=== PATIENT | female | born 1990 | race Caucasian/White ===

== ENCOUNTER 2016-08-17 02:57 | Emergency (ER) | payer BC, MEDICAID ==
[~2016-08-17] VITALS: Ht 167.6 cm; Wt 59.0 kg
[~2016-08-17 02:57] MED LIST: ALBU17AE23 IH; CEFD300C PO; DCS100C PO; FLUC200T PO; HYDR15SO6 PO; IBP800T PO; PEDI100T PO; PEDI1TAB36 PO
--- NOTE | 2016-08-17 03:08 | ED GI ---
General Chief Complaint: Abdominal/GI Problems Stated Complaint: VOMITING,DIARRHEA,15 WKS PREG Source of Information: Patient, RN Notes Reviewed Exam Limitations: No Limitations History of Present Illness Time Seen By Provider: 03:08 Initial Comments As above. No known fever. Denies any symptoms @ this time. Timing/Duration: 24 Hours Severity/Quality: Moderate, Aching Location: Generalized Abdomen Radiation: No Radiation Activities at Onset: None Modifying Factors: Worsens With Vomiting Associated Symptoms: Nausea/Vomiting Allergies and Home Medications Allergies Coded Allergies: fluconazole (Unverified Adverse Reaction, Unknown, 10/19/13) Home Medications Docusate Sodium 100 Mg Capsule #60 1 CAP PO DAILY PRN PRN CONSTIPATION Prescribed by: BRYCE MCKENZIE on 10/20/1324 Famotidine 20 Mg Tablet #10 20 MG PO BID Prescribed by: VANCE RIVERA on 08/17/16446 Hydrocodone Bit/Acetaminophen 15 Ml Solution #60 10-20 ML PO Q4H PRN PRN PAIN Prescribed by: BRYCE MCKENZIE on 10/20/13 0724 Ibuprofen 800 Mg Tablet #60 1 TAB PO Q6H PRN PRN PAIN Prescribed by: BRYCE MCKENZIE on 10/20/13 0724 Metoclopramide HCl 10 Mg Tablet #20 10 MG PO Q6H PRN PRN NAUSEA/VOMITING Prescribed by: VANCE RIVERA on 08/17/16446 Pediatric Multivit Comb No.42 1 Each Tab.chew 2 EACH PO DAILY (Reported) Review of Systems Constitutional: see HPINo fever Gastrointestinal: See HPI Abdominal Pain Diarrhea Nausea Vomiting Genitourinary: See HPI (15 weeks ) All Other Systems Reviewed Negative Unless Noted: Yes Past Kcipqes-Ycrbqk-Itdvul Hx Patient Social History Recent Foreign Travel: No Contact w/Someone Who Travel: No Immunizations Up To Date Tetanus Booster (TDap): More than 5yrs Surgeries HX Surgeries: No Respiratory Hx Respiratory Disorders: Yes Respiratory Disorders: Asthma Cardiovascular Hx Cardiac Disorders: No Neurological Hx Neurological Disorders: No Reproductive System Hx Reproductive Disorders: No Sexually Transmitted Disease: No HIV/AIDS: No Female Reproductive Disorders: Denies Genitourinary Hx Genitourinary Disorders: No Gastrointestinal Hx Gastrointestinal Disorders: No Musculoskeletal Hx Musculoskeletal Disorders: No Endocrine Hx Endocrine Disorders: No HEENT HX ENT Disorders: No Cancer Hx Cancer: No Psychosocial Hx Psychiatric Problems: No Integumentary HX Skin/Integumentary Disorder: No Blood Transfusions Hx Blood Disorders: No Adverse Reaction to a Blood Tr: No Family Medical History Family Medial History: Family history: Diabetes mellitus [place] Family history: Hypertension 03 MOTHER Heart disease [place] Myocardial infarction [place] (Maternal Grandpa) Physical Exam Vital Signs VS - Last 72 Hours, by Label 08/17/16 08/17/16 03:07 04:51 Temp 98.9 98.9 Pulse 108 82 Resp 18 18 B/P 118/77 Pulse Ox 97 97 O2 Delivery Room Air Capillary Refill : General Appearance: WD/WN mild distress HEENT: other (oral pharynx a little on the dry side) Neck: supple Respiratory: no respiratory distress Cardiovascular: tachycardia Gastrointestinal: softNo guarding, No rebound, tenderness (generalized) Rectal: deferred Back: no CVA tenderness Neurologic/Psychiatric: no motor/sensory deficits alert oriented x 3 Skin: warm/dry Progress/Results/Core Measures Results/Orders Lab Results Laboratory Tests Test 08/17/16 03:09 08/17/16 04:11 Range/Units Alanine Aminotransferase (ALT/SGPT) 12 0-55 U/L Albumin 4.2 3.2-4.5 G/DL Alkaline Phosphatase 51 40-136 U/L Anion Gap 11 5-14 MMOL/L Aspartate Amino Transf (AST/SGOT) 17 5-34 U/L BUN/Creatinine Ratio 13 Band Neutrophils 3 % Basophils # (Auto) 0.0 0.0-0.1 10^3/uL Basophils (%) (Auto) 0 0-10 % Blood Urea Nitrogen 9 7-18 MG/DL Calcium Level 8.9 8.5-10.1 MG/DL Carbon Dioxide Level 20 L 21-32 MMOL/L Chloride Level 104 98-107 MMOL/L Creatinine 0.69 0.60-1.30 MG/DL Eosinophils # (Auto) 0.1 0.0-0.3 10^3/uL Eosinophils % (Manual) 1 % Eosinophils (%) (Auto) 1 0-10 % Estimat Glomerular Filtration Rate > 60 Glucose Level 103 70-105 MG/DL Hematocrit 34 L 35-52 % Hemoglobin 10.6 L 11.5-16.0 G/DL Lymphocytes # (Auto) 0.6 L 1.0-4.0 X 10^3 Lymphocytes % (Manual) 5 % Lymphocytes (%) (Auto) 4 L 12-44 % Mean Corpuscular Hemoglobin 20 L 25-34 PG Mean Corpuscular Hemoglobin Concent 32 32-36 G/DL Mean Corpuscular Volume 65 L 80-99 FL Mean Platelet Volume 10.4 7.4-10.4 FL Microcytosis SLIGHT Monocytes # (Auto) 0.6 0.0-1.0 X 10^3 Monocytes % (Manual) 1 % Monocytes (%) (Auto) 5 0-12 % Neutrophils # (Auto) 11.8 H 1.8-7.8 X 10^3 Neutrophils % (Manual) 90 % Neutrophils (%) (Auto) 91 H 42-75 % Platelet Count 279 130-400 10^3/uL Potassium Level 3.5 L 3.6-5.0 MMOL/L Red Blood Count 5.20 4.35-5.85 10^6/uL Red Cell Distribution Width 18.5 H 10.0-14.5 % Sodium Level 135 135-145 MMOL/L Total Bilirubin 0.8 0.1-1.0 MG/DL Total Protein 7.2 6.4-8.2 G/DL White Blood Count 13.0 H 4.3-11.0 10^3/uL Urine Bacteria TRACE /HPF Urine Bilirubin NEGATIVE NEGATIVE Urine Casts NONE /LPF Urine Clarity CLEAR Urine Color YELLOW Urine Crystals NONE /LPF Urine Culture Indicated NO Urine Glucose (UA) NEGATIVE NEGATIVE Urine Ketones 4+ H NEGATIVE Urine Leukocyte Esterase 1+ H NEGATIVE Urine Mucus LARGE H /LPF Urine Nitrite NEGATIVE NEGATIVE Urine Protein 1+ H NEGATIVE Urine RBC NONE /HPF Urine RBC (Auto) NEGATIVE NEGATIVE Urine Specific [place] 1.030 H 1.016-1.022 Urine Squamous Epithelial Cells 10-25 H /HPF Urine Urobilinogen NORMAL NORMAL MG/DL Urine WBC RARE /HPF Urine pH 5 5-9 My Orders Orders-VANCE RIVERA DO Saline Lock/Iv-Start (08/17/16 03:10) Cbc With Automated Diff (08/17/16 03:10) Comprehensive Metabolic Panel (08/17/16 03:10) Ua Culture If Indicated (08/17/16 03:10) Saline Lock/Iv-Start (08/17/16 03:10) Ns Iv 1000 Ml (Sodium Chloride 0.9%) (08/17/16 03:10) Famotidine Injection (Pepcid Injection) (08/17/16 03:15) Metoclopramide Injection (Reglan Injecti (08/17/16 03:15) Metoclopramide Injection (Reglan Injecti (08/17/16 03:13) Ns Iv 1000 Ml (Sodium Chloride 0.9%) (08/17/16 03:13) Famotidine Injection (Pepcid Injection) (08/17/16 03:13) Manual Differential (08/17/16 03:09) Medications Given in ED Vital Signs/I&O Vital Sign - Last 12Hours 08/17/16 08/17/16 03:07 04:51 Temp 98.9 98.9 Pulse 108 82 Resp 18 18 B/P 118/77 Pulse Ox 97 97 O2 Delivery Room Air Progress Note : Progress Note Wanted to give the patient one more bag of IVF's but she declined. [place] much better and said she would go home and push oral fluids. Departure Impression Impression: Primary Impression: Nausea vomiting and diarrhea Additional Impressions: Dehydration during Disposition: 01 HOME, SELF-CARE Condition: Improved Departure-Patient Inst. Decision time for Depature: 04:45 Referrals: [facility] (PCP) Primary Care Physician MARCIO SEQUEIRA (Family) Primary Care Physician Patient Instructions: Nausea and Vomiting, Adult (DC), Diarrhea in Adolescents and Adults Scripts Metoclopramide HCl (Reglan)10 Mg [id number] Mg PO Q6H PRN NAUSEA/VOMITING #20 TAB Ref 0 Prov:VANCE RIVERA DO 08/17/16 Famotidine (Pepcid)20 Mg [id number] Mg PO BID #10 TAB Ref 0 Prov:VANCE RIVERA DO 08/17/16 VANCE RIVERA DO Aug 17, 2016 03:08
[2016-08-17] MEDS ORDERED: NS IV 1000 ML 1,000 ML IV ONE (03:10)
[2016-08-17] MEDS ORDERED: FAMOTIDINE 20MG/2ML IV (PEPCID) ONE (03:13)
[2016-08-17] MEDS ORDERED: NS IV 1000 ML 1,000 ML ONE (03:13)
[2016-08-17] MEDS ORDERED: METOCLOPRAMIDE INJ 10 MG/2 ML (REGLAN) ONE (03:13)
[2016-08-17] MEDS ORDERED: FAMOTIDINE 20MG/2ML IV (PEPCID) IVP ONE (03:15)
[2016-08-17] MEDS ORDERED: METOCLOPRAMIDE INJ 10 MG/2 ML (REGLAN) IVP ONE (03:15)
[2016-08-17 03:21] LABS: BASOPHILS % (AUTO) 0 % (0-10); EOSINOPHILS # (AUTO) 0.1 10^3/uL (0.0-0.3); EOSINOPHILS % (AUTO) 1 % (0-10); LYMPHOCYTES # (AUTO) 0.6 X 10^3 (1.0-4.0); LYMPHOCYTES % (AUTO) 4 % (12-44); MEAN CORPUSCULAR HEMOGLOBIN 20 PG (25-34); MEAN CORPUSCULAR HGB CONC 32 G/DL (32-36); MEAN CORPUSCULAR VOLUME 65 FL (80-99); MEAN PLATELET VOLUME 10.4 FL (7.4-10.4); MONOCYTES # (AUTO) 0.6 X 10^3 (0.0-1.0); MONOCYTES % (AUTO) 5 % (0-12); NEUTROPHILS # (AUTO) 11.8 X 10^3 (1.8-7.8); NEUTROPHILS % (AUTO) 91 % (42-75); PLATELET COUNT 279 10^3/uL (130-400); RED CELL DISTRIBUTION WIDTH 18.5 % (10.0-14.5)
[2016-08-17 03:40] LABS: ALANINE AMINOTRANSFERASE 12 U/L (0-55); ALBUMIN 4.2 G/DL (3.2-4.5); ANION GAP 11 MMOL/L (5-14); ASPARTATE AMINO TRANSFERASE 17 U/L (5-34); BILIRUBIN,TOTAL 0.8 MG/DL (0.1-1.0); BLOOD UREA NITROGEN 9 MG/DL (7-18); BUN/CREATININE RATIO 13; CALCIUM 8.9 MG/DL (8.5-10.1); CARBON DIOXIDE 20 MMOL/L (21-32); CHLORIDE 104 MMOL/L (98-107); CREATININE SERUM 0.69 MG/DL (0.60-1.30); GFR ESTIMATED > 60; GLUCOSE 103 MG/DL (70-105); POTASSIUM 3.5 MMOL/L (3.6-5.0); SODIUM 135 MMOL/L (135-145); TOTAL PROTEIN 7.2 G/DL (6.4-8.2)
[2016-08-17 03:42] LABS: BAND NEUTROPHILS 3 %; EOSINOPHILS % (MANUAL) 1 %; LYMPHOCYTES % (MANUAL) 5 %; MICROCYTOSIS SLIGHT; NEUTROPHILS % (MANUAL) 90 %
[2016-08-17 04:26] LABS: BILIRUBIN,URINE NEGATIVE (NEGATIVE); KETONES,URINE 4+ (NEGATIVE); LEUKOCYTE ESTERASE ,URINE 1+ (NEGATIVE); NITRITE,URINE NEGATIVE (NEGATIVE); PH,URINE 5 (5-9); PROTEIN,URINE 1+ (NEGATIVE); UROBILINOGEN,URINE NORMAL (NORMAL)
[2016-08-17 04:36] LABS: WBC,URINE RARE /HPF
[2016-08-17] MEDS ORDERED: FAMO-119 PO (04:47)
[2016-08-17] MEDS ORDERED: METO-310 PO (04:47)
[2016-08-17 04:51] VITALS: BP 103/65
== END 2016-08-17 04:51 | disposition home or self-care (01) ==
LOC: EDUNIT# 02:57 → ER 03:01
DX: O21.8 Other vomiting complicating pregnancy (principal); O99.282 Endocrine, nutritional and metabolic diseases complicating pregnancy, second trimester; E86.0 Dehydration; O99.612 Diseases of the digestive system complicating pregnancy, second trimester; R19.7 Diarrhea, unspecified; Z3A.15 15 weeks gestation of pregnancy
CPT/HCPCS: 36415; 80053; 81000; 85007; 85027; 96361; 96374; 96375

== ENCOUNTER → 2017-12-26 | Outpatient (CLI) | payer BC ==
[~2017-12-26] MED LIST changes: +FAMO-119 PO; +METO-310 PO
--- NOTE | 2017-12-26 11:29 | Diagnostic Imaging Report ---
INDICATION: survey. FINDINGS: heart rate was recorded at 146 beats per minute. survey demonstrates kidneys, bladder and stomach to be unremarkable. brain is unremarkable. There is a four-chamber heart. There is a three-vessel cord with normal insertion. spine is unremarkable. TECHNIQUE: Multiple real-time grayscale images were obtained over the gravid uterus. COMPARISON: None FINDINGS: There is a single live fetus in a cephalic presentation. The placenta is posterior. The amniotic fluid volume is normal. Biometrical measurements are as follows: Biparietal 4.93 cm, age 21 weeks 0 days. Head circumference 17.92 cm, age 20 weeks 3 days. Abdominal circumference 14.71 cm, age 20 weeks 0 days. Femur length 3.47 cm, age 21 weeks 0 days. Sonographic estimate age: 20 weeks 5 days. Sonographic estimated date of delivery: 05/10/18. Estimated Weight: 354 gm (+/- 52 gm). LMP percentile: 31%. heart rate: 146 beats per minute. number: 1 of 1. IMPRESSION: Single live IUP approximately 20 weeks 5 days gestational age. The estimated date of confinement sonographically is 05/10/2018. Dictated by: Dictated on workstation # [id number]
== END ==
LOC: RAD 09:57
PROVIDERS: ATTEND Obstetrics & Gynecology
DX: Z36.89 Encounter for other specified antenatal screening (principal); Z3A.20 20 weeks gestation of pregnancy
CPT/HCPCS: 76805

== ENCOUNTER 2018-04-22 08:53 | Inpatient (IN) | payer BC ==
[2018-04-22] VITALS (53 sets, daily range): BP systolic 94–187; BP diastolic 51–121
[~2018-04-22] VITALS: Ht 167.6 cm; Wt 65.8 kg
[2018-04-22 09:38] LABS: BILIRUBIN,URINE NEGATIVE (NEGATIVE); CLARITY,URINE SLIGHTLY CLOUDY; COLOR,URINE AMBER; GLUCOSE, URINE (UA) NEGATIVE (NEGATIVE); KETONES,URINE NEGATIVE (NEGATIVE); LEUKOCYTE ESTERASE ,URINE 2+ (NEGATIVE); NITRITE,URINE NEGATIVE (NEGATIVE); PH,URINE 7 (5-9); PROTEIN,URINE 1+ (NEGATIVE); UROBILINOGEN,URINE 4 MG/DL (NORMAL)
[2018-04-22] MEDS ORDERED: FLU QUADRIvalent (5+ YOA) 2018-2019 (AFLURIA) 0.5 ML IM ONE (09:45)
[2018-04-22 09:50] LABS: BACTERIA,URINE MODERATE /HPF; WBC,URINE 25-50 /HPF
[2018-04-22] MEDS ORDERED: ceFAZolin INJECTION 1,000 MG in NS (IVPB) 50 ML IV NR (10:30)
--- OUTSIDE RECORDS SUMMARY | 2018-04-22 10:54 | XMS REPORT | Continuity of Care Document ---
Author Author [facility] Address Unknown Phone Unavailable Allergies Active Description Code Type Severity Reaction Onset Reported/Identified Relationship to Patient Clinical Status Yes fluconazole [id number] Drug Allergy Unknown N/A 10/19/2013 Yes Diflucan Drug Allergy N/A N/A 12/09/2013 Medications There is no data. Problems Date Dx Coded Attending Type Code Diagnosis Diagnosed By 09/26/2009 460 ACUTE NASOPHARYNGITIS [COMMON COLD] 09/26/2009 MARCIO SEQUEIRA APRN 460 ACUTE NASOPHARYNGITIS [COMMON COLD] 09/26/2009 ASHLEY DE LA CRUZ DO 460 ACUTE NASOPHARYNGITIS [COMMON COLD] 09/26/2009 ROSAS CANALES APRN 460 ACUTE NASOPHARYNGITIS [COMMON COLD] 09/26/2009 BELLO PARIKH APRN 460 ACUTE NASOPHARYNGITIS [COMMON COLD] 09/26/2009 ASHLEY DE LA CRUZ DO 460 ACUTE NASOPHARYNGITIS [COMMON COLD] 09/26/2009 DADA COHEN MD 460 ACUTE NASOPHARYNGITIS [COMMON COLD] 09/26/2009 DADA COHEN MD 460 ACUTE NASOPHARYNGITIS [COMMON COLD] 09/26/2009 MARCIO SEQUEIRA APRN 460 ACUTE NASOPHARYNGITIS [COMMON COLD] 11/21/2009 V72.42 TEST POSITIVE RESULT 11/21/2009 MARCIO SEQUEIRA APRN V72.42 TEST POSITIVE RESULT 11/21/2009 ASHLEY DE LA CRUZ DO V72.42 TEST POSITIVE RESULT 11/21/2009 ROSAS CANALES APRN V72.42 TEST POSITIVE RESULT 11/21/2009 BELLO PARIKH APRN V72.42 TEST POSITIVE RESULT 11/21/2009 ASHLEY DE LA CRUZ DO V72.42 TEST POSITIVE RESULT 11/21/2009 DADA COHEN MD V72.42 TEST POSITIVE RESULT 11/21/2009 DADA COHEN MD V72.42 TEST POSITIVE RESULT 11/21/2009 MARCIO SEQUEIRA APRN V72.42 TEST POSITIVE RESULT 12/16/2009 Ot 640.03 04/21/2010 Ot 643.93 04/21/2010 Ot 646.83 04/21/2010 Ot 789.00 06/30/2010 Ot 650 06/30/2010 Ot V27.0 07/15/2010 Ot 666.24 07/30/2010 309.0 AD ADJ D/O W DEPRESSED 07/30/2010 MARCIO SEQUEIRA APRN 309.0 AD ADJ D/O W DEPRESSED 07/30/2010 ASHLEY DE LA CRUZ DO 309.0 AD ADJ D/O W DEPRESSED 07/30/2010 ROSAS CANALES APRN 309.0 AD ADJ D/O W DEPRESSED 07/30/2010 BELLO PARIKH APRN 309.0 AD ADJ D/O W DEPRESSED 07/30/2010 ASHLEY DE LA CRUZ DO 309.0 AD ADJ D/O W DEPRESSED 07/30/2010 DADA COHEN MD 309.0 AD ADJ D/O W DEPRESSED 07/30/2010 DADA COHEN MD 309.0 AD ADJ D/O W DEPRESSED 07/30/2010 MARCIO SEQUEIRA APRN 309.0 AD ADJ D/O W DEPRESSED 02/11/2011 V74.1 TB SCREENING 02/11/2011 MARCIO SEQUEIRA APRN V74.1 TB SCREENING 02/11/2011 ASHLEY DE LA CRUZ DO V74.1 TB SCREENING 02/11/2011 ROSANNA CANALES APRNINA R V74.1 TB SCREENING 02/11/2011 BELLO PARIKH APRN A V74.1 TB SCREENING 02/11/2011 ASHLEY DE LA CRUZ DO V74.1 TB SCREENING 02/11/2011 DADA COHEN MD V74.1 TB SCREENING 02/11/2011 DADA COHEN MD V74.1 TB SCREENING 02/11/2011 MARCIO SEQUEIRA APRN V74.1 TB SCREENING 11/16/2011 477.9 RHINITIS 11/16/2011 MARCIO SEQUEIRA APRN 477.9 RHINITIS 11/16/2011 ASHLEY DE LA CRUZ DO 477.9 RHINITIS 11/16/2011 ROSAS CANALES APRN R 477.9 RHINITIS 11/16/2011 BELLO PARIKH APRN A 477.9 RHINITIS 11/16/2011 JONO TSE, ASHLEY K 477.9 RHINITIS 11/16/2011 DADA COHEN MD 477.9 RHINITIS 11/16/2011 DADA COHEN MD 477.9 RHINITIS 11/16/2011 MARCIO SEQUEIRA APRN S 477.9 RHINITIS 10/20/2012 008.8 GASTROENTERITIS, VIRAL 10/20/2012 SIS SEQUEIRA APRNA S 008.8 GASTROENTERITIS, VIRAL 10/20/2012 ASHLEY DE LA CRUZ DO K 008.8 GASTROENTERITIS, VIRAL 10/20/2012 ROSAS CANALES APRN R 008.8 GASTROENTERITIS, VIRAL 10/20/2012 BELLO PARIKH APRN A 008.8 GASTROENTERITIS, VIRAL 10/20/2012 ASHLEY DE LA CRUZ DO K 008.8 GASTROENTERITIS, VIRAL 10/20/2012 DADA COHEN MD 008.8 GASTROENTERITIS, VIRAL 10/20/2012 DADA COHEN MD 008.8 GASTROENTERITIS, VIRAL 10/20/2012 MARCIO SEQUEIRA APRN S 008.8 GASTROENTERITIS, VIRAL 01/09/2013 SIS SEQUEIRA APRNA S 729.5 PAIN IN LIMB 01/09/2013 ASHLEY DE LA CRUZ DO K 729.5 PAIN IN LIMB 01/09/2013 ROSAS CANALES APRN R 729.5 PAIN IN LIMB 01/09/2013 BELLO PARIKH APRN A 729.5 PAIN IN LIMB 01/09/2013 ASHLEY DE LA CRUZ DO K 729.5 PAIN IN LIMB 01/09/2013 DADA COHEN MD 729.5 PAIN IN LIMB 01/09/2013 DADA COHEN MD 729.5 PAIN IN LIMB 01/09/2013 MARCIO SEQUEIRA APRN S 729.5 PAIN IN LIMB 01/18/2013 JYOTI SEQUEIRA APRNNDA S 780.79 fatigue 01/18/2013 JYOTI SEQUEIRA APRNNDA S 786.2 COUGH 01/18/2013 DE LA CRUZ KAYLA TSEA K 780.79 fatigue 01/18/2013 DE LA CRUZ KAYLA TSEA K 786.2 COUGH 01/18/2013 PARKER ROOF [employer]OLTING [employer]AL MINER, ROSAS R 780.79 fatigue 01/18/2013 PARKER MURRELLN, ROSAS R 786.2 COUGH 01/18/2013 KATI ROOF [employer]OLTING [employer] MINER, BELLO A 780.79 fatigue 01/18/2013 KATI DYSON, BELLO A 786.2 COUGH 01/18/2013 DE LA CRUZ DO, ASHLEY K 780.79 fatigue 01/18/2013 DE LA CRUZ DO, ASHLEY K 786.2 COUGH 01/18/2013 DADA COHEN MD 780.79 fatigue 01/18/2013 DADA COHEN MD 786.2 COUGH 01/18/2013 DADA COHEN MD 780.79 fatigue 01/18/2013 DADA COHEN MD 786.2 COUGH 01/18/2013 JYOTI SEQUEIRA APRNNDA S 780.79 fatigue 01/18/2013 FABBY DYSON MARCIO S 786.2 COUGH 02/01/2013 FABBY DYSON MARCIO S 692.9 CONTACT DERMATITIS AND OTHER ECZEMA UNSPECIFIED CAUSE 02/01/2013 ASHLEY DE LA CRUZ DO K 692.9 CONTACT DERMATITIS AND OTHER ECZEMA UNSPECIFIED CAUSE 02/01/2013 ROSANNA CANALES APRNINA R 692.9 CONTACT DERMATITIS AND OTHER ECZEMA UNSPECIFIED CAUSE 02/01/2013 KRISTI PARIKH APRNYL A 692.9 CONTACT DERMATITIS AND OTHER ECZEMA UNSPECIFIED CAUSE 02/01/2013 ASHLEY DE LA CRUZ DO K 692.9 CONTACT DERMATITIS AND OTHER ECZEMA UNSPECIFIED CAUSE 02/01/2013 DADA COHEN MD 692.9 CONTACT DERMATITIS AND OTHER ECZEMA UNSPECIFIED CAUSE 02/01/2013 DADA COHEN MD 692.9 CONTACT DERMATITIS AND OTHER ECZEMA UNSPECIFIED CAUSE 02/01/2013 SIS SEQUEIRA APRNA S 692.9 CONTACT DERMATITIS AND OTHER ECZEMA UNSPECIFIED CAUSE 07/28/2013 AGUSTIN STRONG DOA K Ot 368.8 VISUAL DISTURBANCES NEC 07/28/2013 AGUSTIN STRONG DOA K Ot 646.83 PREG COMPL NEC-ANTEPART 07/29/2013 RUPERTO WALTON DOLINE S Ot 285.9 ANEMIA NOS 07/29/2013 RUPERTO WALTON DOLINE S Ot 368.8 VISUAL DISTURBANCES NEC 07/29/2013 RUPERTO WALTON DOLINE S Ot 493.00 EXTRINSIC ASTHMA, NOS 07/29/2013 RUPERTO WALTON DOLINE S Ot 599.0 URIN TRACT INFECTION NOS 07/29/2013 CANDICENDER DO, RYLAN S Ot 646.63 INFECTION-ANTEPARTUM 07/29/2013 CANDICENDER DO, RYLAN S Ot 646.83 PREG COMPL NEC-ANTEPART 07/29/2013 CANDICENDER DO, RYLAN S Ot 648.23 ANEMIA-ANTEPARTUM 07/29/2013 CANDICENDER DO, RYLAN S Ot 648.93 OTH CURR COND-ANTEPARTUM 07/29/2013 CANDICENDER DO, RYLAN S Ot 780.97 ALTERED MENTAL STATUS 07/29/2013 CANDICENDER DO, RYLAN S Ot 782.0 SKIN SENSATION DISTURB 07/29/2013 CANDICENDER DO, RYLAN S Ot 784.0 HEADACHE 08/09/2013 SIS SEQUEIRA APRNA S 112.1 CANDIDIASIS VAGINAL 08/09/2013 FABBY DYSON MARCIO S V22.1 , NORMAL OTHER 08/09/2013 JONO TSE ASHLEY K 112.1 CANDIDIASIS VAGINAL 08/09/2013 JONO TSE ASHLEY K V22.1 , NORMAL OTHER 08/09/2013 PARKER MURRELLN, ROSAS R 112.1 CANDIDIASIS VAGINAL 08/09/2013 PARKER MURRELLN, ROSAS R V22.1 , NORMAL OTHER 08/09/2013 KATI DYSON BELLO A 112.1 CANDIDIASIS VAGINAL 08/09/2013 KATI DYSON BELLO A V22.1 , NORMAL OTHER 08/09/2013 JONO TSE ASHLEY K 112.1 CANDIDIASIS VAGINAL 08/09/2013 JONO TSE ASHLEY K V22.1 , NORMAL OTHER 08/09/2013 DADA COHEN MD 112.1 CANDIDIASIS VAGINAL 08/09/2013 DADA COHEN MD V22.1 , NORMAL OTHER 08/09/2013 DADA COHEN MD 112.1 CANDIDIASIS VAGINAL 08/09/2013 DADA COHEN MD V22.1 , NORMAL OTHER 08/09/2013 SIS SEQUEIRA APRNA S 112.1 CANDIDIASIS VAGINAL 08/09/2013 FABBY DYSON MARCIO S V22.1 , NORMAL OTHER 10/20/2013 ROBIN PRICE, BRYCE Ceja Ot 285.9 ANEMIA NOS 10/20/2013 ROBIN PRICE, BRYCE Ceja Ot 648.21 ANEMIA-DELIVERED 10/20/2013 BRYCE KELLY MD Ot V27.0 DELIVER-SINGLE LIVEBORN 10/23/2013 DE LA CRUZ DO, ASHLEY K 789.00 ABDOMINAL PAIN UNSPECIFIED SITE 10/23/2013 PARKER DYSON ROSAS R 789.00 ABDOMINAL PAIN UNSPECIFIED SITE 10/23/2013 KATI DYSON BELLO A 789.00 ABDOMINAL PAIN UNSPECIFIED SITE 10/23/2013 DE LA CRUZ DO, ASHLEY K 789.00 ABDOMINAL PAIN UNSPECIFIED SITE 10/23/2013 DADA COHEN MD 789.00 ABDOMINAL PAIN UNSPECIFIED SITE 10/23/2013 DADA COHEN MD 789.00 ABDOMINAL PAIN UNSPECIFIED SITE 10/23/2013 MARCIO SEQUEIRA APRN S 789.00 ABDOMINAL PAIN UNSPECIFIED SITE 10/28/2013 PARKER DYSON ROSAS R 782.0 DISTURBANCE OF SKIN SENSATION 10/28/2013 PARKER DYSON ROSAS R V41.0 PROBLEMS WITH SIGHT 10/28/2013 KATI DYSON BELLO A 782.0 DISTURBANCE OF SKIN SENSATION 10/28/2013 KATI DYSON BELLO A V41.0 PROBLEMS WITH SIGHT 10/28/2013 DE LA CRUZ DO, ASHLEY K 782.0 DISTURBANCE OF SKIN SENSATION 10/28/2013 DE LA CRUZ DO, ASHLEY K V41.0 PROBLEMS WITH SIGHT 10/28/2013 DADA COHEN MD 782.0 DISTURBANCE OF SKIN SENSATION 10/28/2013 DADA COHEN MD V41.0 PROBLEMS WITH SIGHT 10/28/2013 DADA COHEN MD 782.0 DISTURBANCE OF SKIN SENSATION 10/28/2013 DADA COHEN MD V41.0 PROBLEMS WITH SIGHT 10/28/2013 MARCIO SEQUEIRA APRN S 782.0 DISTURBANCE OF SKIN SENSATION 10/28/2013 MARCIO SEQUEIRA APRN S V41.0 PROBLEMS WITH SIGHT 11/15/2013 KRISTI PARIKH APRNYL A 462 PHARYNGITIS ACUTE 11/15/2013 DE LA CRUZ DO ASHLEY K 462 PHARYNGITIS ACUTE 11/15/2013 DE LA CRUZ DO, ASHLEY K 465.9 UPPER RESPIRATORY INFECTION 11/15/2013 DADA COHEN MD 462 PHARYNGITIS ACUTE 11/15/2013 DADA COHEN MD 465.9 UPPER RESPIRATORY INFECTION 11/15/2013 DADA COHEN MD 462 PHARYNGITIS ACUTE 11/15/2013 DADA COHEN MD 465.9 UPPER RESPIRATORY INFECTION 11/15/2013 MARCIO SEQUEIRA APRN 462 PHARYNGITIS ACUTE 11/15/2013 MARCIO SEQUEIRA APRN 465.9 UPPER RESPIRATORY INFECTION 12/09/2013 DADA COHEN MD 346.02 MIGRAINE WITH AURA WITHOUT MENTION OF INTRACTABLE MIGRAINE WITH STATUS MIGRAINOSUS 12/09/2013 DAAD COHEN MD V70.0 EXAM - ROUTINE H&P 12/09/2013 DADA COHEN MD 346.02 MIGRAINE WITH AURA WITHOUT MENTION OF INTRACTABLE MIGRAINE WITH STATUS MIGRAINOSUS 12/09/2013 DADA COHEN MD V70.0 EXAM - ROUTINE H&P 12/09/2013 MARCIO SEQUEIRA APRN 346.02 MIGRAINE WITH AURA WITHOUT MENTION OF INTRACTABLE MIGRAINE WITH STATUS MIGRAINOSUS 12/09/2013 MARCIO SEQUEIRA APRN V70.0 EXAM - ROUTINE H&P 12/14/2013 DADA COHEN MD 285.9 ANEMIA 12/14/2013 DADA COHEN MD 285.9 ANEMIA 12/14/2013 MARCIO SEQUEIRA APRN 285.9 ANEMIA 01/21/2015 Ot 640.93 01/21/2015 Ot 789.03 01/21/2015 MARCIO SEQUEIRA Ot 346.02 01/21/2015 MARCIO SEQUEIRA Ot V70.0 08/17/2016 MARCIO SEQUEIRA Ot 346.02 MIGRAINE W AURA W/OUT INTRACTABLE MGRN W 08/17/2016 MARCIO SEQUEIRA Ot V70.0 ROUTINE MEDICAL EXAM 08/17/2016 VANCE RIVERA DO Ot E86.0 DEHYDRATION 08/17/2016 VANCE RIVERA DO Ot O21.8 OTHER VOMITING COMPLICATING 08/17/2016 VANCE RIVERA DO Ot O99.282 ENDO, NUTRITIONAL AND METAB DISEASES COM 08/17/2016 VANCE RIVERA DO Ot O99.612 DISEASES OF THE DGSTV SYS COMP 08/17/2016 NICOLEVANCE REYNOLDS DO Ot R11.2 NAUSEA WITH VOMITING, UNSPECIFIED 08/17/2016 VANCE RIVERA DO Ot R19.7 DIARRHEA, UNSPECIFIED 08/17/2016 VANCE RIVERA DO Ot Z3A.15 15 WEEKS GESTATION OF 08/21/2016 VANCE RIVERA DO Ot E86.0 DEHYDRATION 08/21/2016 VANCE RIVERA DO Ot O21.8 OTHER VOMITING COMPLICATING 08/21/2016 VANCE RIVERA DO Ot O99.282 ENDO, NUTRITIONAL AND METAB DISEASES COM 08/21/2016 NICOLEVANCE REYNOLDS DO Ot O99.612 DISEASES OF THE DGSTV SYS COMP 08/21/2016 NICOLEVANCE REYNOLDS DO Ot R11.2 NAUSEA WITH VOMITING, UNSPECIFIED 08/21/2016 VANCE RIVERA DO Ot R19.7 DIARRHEA, UNSPECIFIED 08/21/2016 VANCE RIVERA DO Ot Z3A.15 15 WEEKS GESTATION OF 05/04/2017 MARCIO SEQUEIRA JAVA GROOVY DEVELOPER Ot 346.02 MIGRAINE W AURA W/OUT INTRACTABLE MGRN W 05/04/2017 MARCIO SEQUEIRA JAVA GROOVY DEVELOPER Ot V70.0 ROUTINE MEDICAL EXAM 12/26/2017 MARCIO SEQUEIRA JAVA GROOVY DEVELOPER Ot 346.02 MIGRAINE W AURA W/OUT INTRACTABLE MGRN W 12/26/2017 MARCIO SEQUEIRA JAVA GROOVY DEVELOPER Ot V70.0 ROUTINE MEDICAL EXAM 12/29/2017 FENECH DO ODILIA S Ot Z36.89 ENCOUNTER FOR OTHER SPECIFIED 12/29/2017 FENECH DO, ODILIA S Ot Z3A.20 20 WEEKS GESTATION OF 01/28/2018 FENECH DO, ODILIA S Ot Z36.89 ENCOUNTER FOR OTHER SPECIFIED 01/28/2018 FENECH DO, ODILIA S Ot Z3A.20 20 WEEKS GESTATION OF 01/28/2018 FENECH DO, ODILIA S Ot Z36.89 ENCOUNTER FOR OTHER SPECIFIED 01/28/2018 FENECH DO, ODILIA S Ot Z3A.20 20 WEEKS GESTATION OF Procedures Code Description Performed By Performed On 73.6 EPISIOTOMY 10/19/2013 59174 STREP A (IN-HOUSE) 11/15/2013 08765 ROUTINE VENIPUNCTURE 12/09/2013 08233 SED/ESR RATE (IN HOUSE) 12/09/2013 42894 CMP 12/09/2013 2100480 GFR CALC (RESULT ONLY) 12/09/2013 10168 CBC 12/09/2013 82318 CRP 12/09/[address] HEAD/BRAIN W/O & W/DYE 12/14/2013 14916 ROUTINE VENIPUNCTURE 12/16/2013 7822000 IMMATURE PLATELET FRACTION (RESULT ONLY) 12/16/2013 38759 CBC 12/16/2013 78444 RETICULOCYTE COUNT 12/16/2013 1318827 AN FERRIT 12/17/2013 5043114 ANEM JIC 12/17/2013 [id number] HEMATOLOGY OTHER REPORT 12/17/2013 ANEMIAANA ANEMIA ANALYZER 12/17/2013 Results Test Result Range Complete blood count (CBC) with automated white blood cell (WBC) differential - 08/17/16 03:09 Blood leukocytes automated count (number/volume) 13.0 10*3/uL 4.3-11.0 Blood erythrocytes automated count (number/volume) 5.20 10*6/uL 4.35-5.85 Venous blood hemoglobin measurement (mass/volume) 10.6 g/dL 11.5-16.0 Blood hematocrit (volume fraction) 34 % 35-52 Automated erythrocyte mean corpuscular volume 65 [foz_us] 80-99 Automated erythrocyte mean corpuscular hemoglobin (mass per erythrocyte) 20 pg 25-34 Automated erythrocyte mean corpuscular hemoglobin concentration measurement ( mass/volume) 32 g/dL 32-36 Automated erythrocyte distribution width ratio 18.5 % 10.0-14.5 Automated blood platelet count (count/volume) 279 10*3/uL 130-400 Automated blood platelet mean volume measurement 10.4 [foz_us] 7.4-10.4 Automated blood neutrophils/100 leukocytes 91 % 42-75 Automated blood lymphocytes/100 leukocytes 4 % 12-44 Blood monocytes/100 leukocytes 5 % 0-12 Automated blood eosinophils/100 leukocytes 1 % 0-10 Automated blood basophils/100 leukocytes 0 % 0-10 Blood neutrophils automated count (number/volume) 11.8 10*3 1.8-7.8 Blood lymphocytes automated count (number/volume) 0.6 10*3 1.0-4.0 Blood monocytes automated count (number/volume) 0.6 10*3 0.0-1.0 Automated eosinophil count 0.1 10*3/uL 0.0-0.3 Automated blood basophil count (count/volume) 0.0 10*3/uL 0.0-0.1 Comprehensive metabolic panel - 08/17/16 03:09 Serum or plasma sodium measurement (moles/volume) 135 mmol/L 135-145 Serum or plasma potassium measurement (moles/volume) 3.5 mmol/L 3.6-5.0 Serum or plasma chloride measurement (moles/volume) 104 mmol/L 98-107 Carbon dioxide 20 mmol/L 21-32 Serum or plasma anion gap determination (moles/volume) 11 mmol/L 5-14 Serum or plasma urea nitrogen measurement (mass/volume) 9 mg/dL 7-18 Serum or plasma creatinine measurement (mass/volume) 0.69 mg/dL 0.60-1.30 Serum or plasma urea nitrogen/creatinine mass ratio 13 NRG Serum or plasma creatinine measurement with calculation of estimated glomerular filtration rate > NRG Serum or plasma glucose measurement (mass/volume) 103 mg/dL 70-105 Serum or plasma calcium measurement (mass/volume) 8.9 mg/dL 8.5-10.1 Serum or plasma total bilirubin measurement (mass/volume) 0.8 mg/dL 0.1-1.0 Serum or plasma alkaline phosphatase measurement (enzymatic activity/volume) 51 U/L 40-136 Serum or plasma aspartate aminotransferase measurement (enzymatic activity/ volume) 17 U/L 5-34 Serum or plasma alanine aminotransferase measurement (enzymatic activity/volume ) 12 U/L 0-55 Serum or plasma protein measurement (mass/volume) 7.2 g/dL 6.4-8.2 Serum or plasma albumin measurement (mass/volume) 4.2 g/dL 3.2-4.5 Blood manual differential performed detection - 08/17/16 03:09 Blood monocytes/100 leukocytes 1 % NRG Manual blood segmented neutrophils/100 leukocytes 90 % NRG Blood band neutrophils/100 leukocytes 3 % NRG Manual blood lymphocytes/100 leukocytes 5 % NRG Manual eosinophils/100 leukocytes in nose 1 % NRG Blood microcytes detection by light microscopy SLIGHT NRG Complete urinalysis with reflex to culture - 08/17/16 04:11 Urine color determination YELLOW NRG Urine clarity determination CLEAR NRG Urine pH measurement by test strip 5 5-9 Specific gravity of urine by test strip 1.030 1.016- 1.022 Urine protein assay by test strip, semi-quantitative 1+ NEGATIVE Urine glucose detection by automated test strip NEGATIVE NEGATIVE Erythrocytes detection in urine sediment by light microscopy NEGATIVE NEGATIVE Urine ketones detection by automated test strip 4+ NEGATIVE Urine nitrite detection by test strip NEGATIVE NEGATIVE Urine total bilirubin detection by test strip NEGATIVE NEGATIVE Urine urobilinogen measurement by automated test strip (mass/volume) NORMAL NORMAL Urine leukocyte esterase detection by dipstick 1+ NEGATIVE Automated urine sediment erythrocyte count by microscopy (number/high power field) NONE NRG Automated urine sediment leukocyte count by microscopy (number/high power field ) RARE NRG Bacteria detection in urine sediment by light microscopy TRACE NRG Squamous epithelial cells detection in urine sediment by light microscopy 10-25 NRG Crystals detection in urine sediment by light microscopy NONE NRG Casts detection in urine sediment by light microscopy NONE NRG Mucus detection in urine sediment by light microscopy LARGE NRG Complete urinalysis with reflex to culture NO NRG Encounters ACCT No. Visit Date/Time Discharge Status Pt. Type Provider Facility Loc./Unit Complaint [id number] 12/16/2013 08:07:00 12/16/2013 23:59:59 CLS Outpatient DADA COHEN MD [id number] 12/09/2013 13:02:00 12/09/2013 23:59:59 CLS Outpatient MARCIO SEQUEIRA APRN [id number] 12/09/2013 13:02:00 12/09/2013 23:59:59 CLS Outpatient DADA COHEN MD [id number] 11/15/2013 16:45:00 11/15/2013 23:59:59 CLS Outpatient ASHLEY DE LA CRUZ DO [id number] 11/15/2013 10:59:00 11/15/2013 23:59:59 CLS Outpatient BELLO PARIKH APRN [id number] 10/28/2013 11:15:00 10/28/2013 23:59:59 CLS Outpatient ROSAS CANALES APRN [id number] 10/23/2013 12:04:00 10/23/2013 23:59:59 CLS Outpatient ASHLEY DE LA CRUZ DO [id number] 08/09/2013 15:29:00 08/09/2013 23:59:59 CLS Outpatient MARCIO SEQUEIRA APRN [id number] 10/20/2012 10:15:00 Document Registration [id number] 12/26/2017 09:57:00 12/26/2017 23:59:59 CLS Outpatient ODILIA MARTIN DO [facility] RAD [id number] 08/17/2016 03:01:00 08/17/2016 04:51:00 DIS Emergency VANCE RIVERA DO [facility] ER VOMITING,DIARRHEA,15 WKS PREG [id number] 12/17/2013 08:12:00 12/17/2013 23:59:59 CLS Outpatient MARCIO SEQUEIRA [facility] RAD MIGRAINE WITH AURA [id number] 10/19/2013 08:00:00 10/20/2013 18:00:00 DIS Inpatient BRYCE KELLY MD [facility] WS C/O SPOTTING [id number] 07/28/2013 17:04:00 07/29/2013 11:05:00 DIS Inpatient RYLAN WALTON DO [facility] WS DIZZINESS VISION CHANGE CONFUSION [id number] 07/28/2013 11:00:00 07/28/2013 12:19:00 DIS Emergency TAE DOJEREMI [facility] ER BLURRY VISION/WEAKNESS 23 WKS PREG [id number] 02/13/2011 09:44:00 Document Registration [id number] 07/15/2010 01:13:00 Document Registration [id number] 06/28/2010 14:00:00 Document Registration [id number] 04/21/2010 10:49:00 Document Registration [id number] 01/05/2010 12:21:00 Document Registration [id number] 12/16/2009 17:23:00 Document Registration
[2018-04-22] MEDS: D5 LR IV SOLUTION 1,000 ML IV SCH ×2 (11:27→19:30)
[2018-04-22 11:39] LABS: BASOPHILS % (AUTO) 0 % (0-10); EOSINOPHILS # (AUTO) 0.1 10^3/uL (0.0-0.3); EOSINOPHILS % (AUTO) 1 % (0-10); HEMATOCRIT 26 % (35-52); HEMOGLOBIN 8.2 G/DL (11.5-16.0); LYMPHOCYTES # (AUTO) 1.7 X 10^3 (1.0-4.0); LYMPHOCYTES % (AUTO) 17 % (12-44); MEAN CORPUSCULAR HEMOGLOBIN 20 PG (25-34); MEAN CORPUSCULAR HGB CONC 31 G/DL (32-36); MEAN CORPUSCULAR VOLUME 64 FL (80-99); MEAN PLATELET VOLUME 10.4 FL (7.4-10.4); MONOCYTES # (AUTO) 0.5 X 10^3 (0.0-1.0); MONOCYTES % (AUTO) 5 % (0-12); NEUTROPHILS # (AUTO) 7.8 X 10^3 (1.8-7.8); NEUTROPHILS % (AUTO) 78 % (42-75); PLATELET COUNT 286 10^3/uL (130-400); RED BLOOD COUNT 4.12 10^6/uL (4.35-5.85); WHITE BLOOD COUNT 10.1 10^3/uL (4.3-11.0)
[2018-04-22] MEDS ORDERED: SUFENTA 0.6MCG/ML BUPIVA 0.125 100 ML ONE (12:20)
[2018-04-22] MEDS ORDERED: BUPIVACAINE 0.25% 30 ML (SENSORCAINE) VIAL ONE (12:37)
[2018-04-22] MEDS ORDERED: fentaNYL INJECTION 100 MCG/2 ML AMP ONE (12:37)
[2018-04-22] MEDS ORDERED: LACTATED RINGERS 1,000 ML IV ONE ×2 (12:48)
[2018-04-22] MEDS ORDERED: EPIDURAL (SUFENTA 0.6MCG/ML BUPIVA 0.125%) 100 ML BAG EPI PRN (13:00)
[2018-04-22] MEDS ORDERED: ONDANSETRON 4 MG/2 ML (SDV) Z0FRAN IV PRN (13:00)
[2018-04-22] MEDS ORDERED: METOCLOPRAMIDE INJ 10 MG/2 ML (REGLAN) IV PRN (13:00)
[2018-04-22] MEDS ORDERED: NALOXONE 0.4 MG/ML 1 ML (NARCAN) VIAL IV PRN (13:00)
--- NOTE | 2018-04-22 14:28 | History & Physical-OB ---
OB - Chief Complaint & HPI Date/Time Date of Admission: Date of Admission: Apr 22, 2018 at 10:15 am Date seen by a Provider: Apr 22, 2018 Time Seen by a Provider: 08:45 Chief Complaint/History OB-Reason for Admission/Chief: Onset of Labor Hx : 4 Hx Para: 3 Expected Date of Delivery: May 10, 2018 Gestational Age in Weeks: 37 Gestational Age in Days: 1 Admission Nurse Assessment Rev: Yes History of Labs O pos Antibody neg RI RPR NR HBsAg NR HIV NR GC neg GBS neg Allergies and Home Medications Allergies Coded Allergies: fluconazole (Unverified Adverse Reaction, Unknown, 10/19/13) Home Medications Docusate Sodium 100 Mg Capsule, 1 CAP PO DAILY PRN for CONSTIPATION Prescribed by: BRYCE MCKENZIE on 10/20/1324 Famotidine 20 Mg Tablet, 20 MG PO BID Prescribed by: VANCE RIVERA on 08/17/16446 Hydrocodone Bit/Acetaminophen 15 Ml Solution, 10-20 ML PO Q4H PRN for PAIN Prescribed by: BRYCE MCKENZIE on 10/20/1324 Ibuprofen 800 Mg Tablet, 1 TAB PO Q6H PRN for PAIN Prescribed by: BRYCE MCKENZIE on 10/20/1324 Metoclopramide HCl 10 Mg Tablet, 10 MG PO Q6H PRN for NAUSEA/VOMITING Prescribed by: VANCE RIVERA on 08/17/16446 Pediatric Multivit Comb No.42 1 Each Tab.chew, 2 EACH PO DAILY, (Reported) Patient Home Medication List Home Medication List Reviewed: Yes OB - History Hx of Present Care: Yes Ultrasounds: Normal mid trimester US Obstetrical Complications: None Medical Complications: None Obstetrical History Hx : 4 Hx Para: 3 Hx Termination: No Hx Multiple Gestation: No Hx Stillbirth: No Hx Complication: No Hx Induced Hypertens: No Hx Maternal Gestational Diabet: No Delivery History Hx Dystocia: No Hx Large For Gestational Age I: No Hx Small for Gestational Age I: No Hx Section: No Hx Vaginal Delivery Post C-Sec: No Hx Blood Disorders: No Adverse Rxn to Tranfusion: No Patient Past Medical History n/a Social History/Family History HIV/AIDS: No Recent Infectious Disease Expo: No Sexually Transmitted Disease: No Alcohol Use: Denies Use Recreational Drug Use: No Immunizations Hepatitis A: Yes Hepatitis B: Yes Tetanus Booster (TDap): More than 5yrs OB - Admission Exam Physical Exam Vitals: Vital Signs 04/22/18 08:55 Pulse 76 Resp 18 B/P (MAP) 112/75 (87) O2 Delivery Room Air HEENT: NCAT Heart: Rhythm Normal Lungs: Clear Abdomen: Gravid Extremities: Normal Reflexes: Normal Cervical Dilatation: 4cm Effacement: 75% Station: -1 Membranes: Intact Heart Rate: 130's Accelerations: Accelerations Present Decelerations: No Decelerations Airport Maintenance Chief Variability: Average (6-25) Contractions on Admission: 6-10 Minutes Apart Intensity: Firm Labs Laboratory Tests Test 04/22/18 09:00 04/22/18 11:27 Range/Units Urine Color BERNIE H Urine Clarity SLIGHTLY CLOUDY Urine pH 7 5-9 Urine Specific [place] 1.015 L 1.016-1.022 Urine Protein 1+ H NEGATIVE Urine Glucose (UA) NEGATIVE NEGATIVE Urine Ketones NEGATIVE NEGATIVE Urine Nitrite NEGATIVE NEGATIVE Urine Bilirubin NEGATIVE NEGATIVE Urine Urobilinogen 4 H NORMAL MG/DL Urine Leukocyte Esterase 2+ H NEGATIVE Urine RBC (Auto) 1+ H NEGATIVE Urine RBC NONE /HPF Urine WBC 25-50 H /HPF Urine Squamous Epithelial Cells 10-25 H /HPF Urine Renal Epithelial Cells NONE /HPF Urine Crystals NONE /LPF Urine Bacteria MODERATE H /HPF Urine Casts NONE /LPF Urine Mucus SMALL H /LPF Urine Culture Indicated YES White Blood Count 10.1 4.3-11.0 10^3/uL Red Blood Count 4.12 L 4.35-5.85 10^6/uL Hemoglobin 8.2 L 11.5-16.0 G/DL Hematocrit 26 L 35-52 % Mean Corpuscular Volume 64 L 80-99 FL Mean Corpuscular Hemoglobin 20 L 25-34 PG Mean Corpuscular Hemoglobin Concent 31 L 32-36 G/DL Red Cell Distribution Width 19.0 H 10.0-14.5 % Platelet Count 286 130-400 10^3/uL Mean Platelet Volume 10.4 7.4-10.4 FL Neutrophils (%) (Auto) 78 H 42-75 % Lymphocytes (%) (Auto) 17 12-44 % Monocytes (%) (Auto) 5 0-12 % Eosinophils (%) (Auto) 1 0-10 % Basophils (%) (Auto) 0 0-10 % Neutrophils # (Auto) 7.8 1.8-7.8 X 10^3 Lymphocytes # (Auto) 1.7 1.0-4.0 X 10^3 Monocytes # (Auto) 0.5 0.0-1.0 X 10^3 Eosinophils # (Auto) 0.1 0.0-0.3 10^3/uL Basophils # (Auto) 0.0 0.0-0.1 10^3/uL OB - Assessment/Plan/Diagnosis Assessment Assessment: active labor Admission Dx 28 yo @ 37.1 Active labor GBS neg Admission Status: Inpatient Order (span 2 midnights) Reason for Inpatient Admission: Active labor and delivery of infant Plan Plan: Expectant Management ODILIA MARTIN DO Apr 22, 2018 2:28 pm
[2018-04-22] MEDS ORDERED: OXYTOCIN/NORMAL SALINE 500 ML IV SCH ×2 (15:44→19:59)
[2018-04-22] MEDS: CATHETER FLUSH 10 ML SYR IV SCH ×2 (16:20→22:00)
[2018-04-22] MEDS ORDERED: ALBU2.5V4 IH (18:35)
[2018-04-22] MEDS ORDERED: FERR-84 PO (18:36)
[2018-04-22] MEDS ORDERED: TETANUS,DIPTH,PERTUSS P/F (BOOSTRIX) 0.5 ML VIAL IM ONE (20:00)
[2018-04-22] MEDS ORDERED: BENZOCAINE/MENTHOL (DERMOPLAST) 56 ML CAN TP PRN (20:00)
[2018-04-22] MEDS ORDERED: KETOROLAC 30 MG/ML VIAL IVP SCH (20:00)
[2018-04-22] MEDS ORDERED: DIBUCAINE (NUPERCAINAL) 1% OINT 30 GM TOP PRN (20:00)
[2018-04-22] MEDS ORDERED: MEASLES,MUMPS,RUBELLA 1 EA INJ SQ ONE (20:00)
--- NOTE | 2018-04-22 20:03 | OB Labor & Delivery Record ---
L&D History Date of Service Date of Service: Apr 22, 2018 History Expected Date of Delivery: May 10, 2018 Gestational Age in Weeks: 37 Hx : 4 Hx Para: 3 Complications Events: Routine care Operative Indications (Cesarea: N/A-Vaginal Delivery Intrapartal Events: None L&D Stage1 Stage One Onset of Labor - Date: Apr 22, 2018 Monitors and Tracing Monitor Mode: Internal Heart Rate: 130 Monitor Decelerations: None Station: -1 [facility] Variability: Average (6-10) Short Term Variability: Present Presentation: Vertex Vital Signs VS - Last 72 Hours, by Label 04/22/18 04/22/18 04/22/18 04/22/18 08:55 09:45 11:30 12:00 Temp 98.0 Pulse 76 76 77 75 Resp 18 18 18 18 B/P (MAP) 112/75 (87) 107/62 (77) 119/68 (85) 109/67 (81) O2 Delivery Room Air Room Air Room Air Room Air 04/22/18 04/22/18 04/22/18 04/22/18 12:30 12:50 13:00 13:06 Temp 98.2 Pulse 82 76 81 81 Resp 18 18 18 18 B/P (MAP) 110/68 (82) 127/65 (85) 110/80 (90) 117/66 (83) Pulse Ox 85 100 100 O2 Delivery Room Air Room Air Room Air Room Air 04/22/18 04/22/18 04/22/18 04/22/18 13:10 13:15 13:20 13:25 Pulse 78 80 89 76 Resp 18 18 18 18 B/P (MAP) 112/60 (77) 119/68 (85) 118/78 (91) 112/71 (85) Pulse Ox 100 100 100 100 O2 Delivery Room Air Room Air Room Air Room Air 04/22/18 04/22/18 04/22/18 04/22/18 13:30 13:45 14:00 14:15 Pulse 71 64 67 51 Resp 18 18 18 18 B/P (MAP) 111/60 (77) 111/55 (73) 103/62 (76) 94/51 (65) Pulse Ox 98 99 99 100 O2 Delivery Room Air Room Air Room Air Room Air 04/22/18 04/22/18 04/22/1817/18 14:30 14:45 15:00 15:15 Temp 96.5 Pulse 59 69 60 80 Resp 18 18 18 18 B/P (MAP) 102/60 (74) 102/71 (81) 106/74 (85) 114/53 (73) Pulse Ox 98 100 100 95 O2 Delivery Room Air Room Air Room Air Room Air 04/22/18 04/22/18 04/22/18 04/22/18 15:30 15:45 16:00 16:15 Pulse 66 64 64 60 Resp 18 18 18 18 B/P (MAP) 109/68 (82) 99/58 (72) 102/68 (79) 102/67 (79) Pulse Ox 100 100 100 100 O2 Delivery Room Air Room Air Room Air Room Air 04/22/18 04/22/18 04/22/18 04/22/18 16:30 16:45 17:00 17:15 Pulse 54 59 70 70 Resp 18 18 18 18 B/P (MAP) 100/70 (80) 99/67 (78) 113/70 (84) 114/73 (87) Pulse Ox 100 100 100 100 O2 Delivery Room Air Room Air Room Air Room Air 04/22/18 04/22/18 04/22/18 04/22/18 17:30 17:45 18:00 18:15 Pulse 62 61 78 77 Resp 18 18 18 18 B/P (MAP) 106/57 (73) 113/68 (83) 108/60 (76) 116/79 (91) Pulse Ox 100 100 100 99 O2 Delivery Room Air Room Air Room Air Room Air 04/22/18 04/22/18 04/22/18 18:30 18:45 19:00 Temp 97.9 Pulse 79 69 90 Resp 18 18 18 B/P (MAP) 105/57 (73) 109/57 (74) 162/70 (100) Pulse Ox 98 98 100 O2 Delivery Room Air Room Air Room Air Rupture of Membranes Spontaneous Ruture of Membrane: No Amniotic Membrane Rupture Time: 1316 Amniotic Membrane Fluid Desc.: Clear Vaginal Bleeding Description: Normal Show Induction/Anesthesia Epidural Cath Placement - Time: 1300 Progress/Notes Pitocin augmentation started at 6 cm due to arrest in dilatation with spontaneous labor L&D Stage2 Stage Two Stage II Date: Apr 22, 2018 Monitors and Tracing Monitor Mode: Internal Heart Rate: 130 Monitor Decelerations: None Penitentiary Variability: Average (6-10) Short Term Variability: Present Position: Right Occiput Anterior Presentation: Vertex Cord Descript/Complications Cord Vessel Description: 3 Vessels Complications nuchal cord reduced x 2 Delivery Type Delivery Method: Spontaneous Vaginal Anterior Shoulder: Right Episiotomy/Perineal Laceration Laceraction(s)/Extensions: No Condition of Delivery 1 minute Comment: 9 5 minute Comment: 9 Notes Live female weight 5lbs 13 oz Condition of Condition of Infant: Living Exam: No Observed Abnormalities Resuscitation Resuscitation: N/A - Spontaneous Resp L&D Stage3 Stage Three Stage III Date: Apr 22, 2018 Pictocin Pitocin Administration mu/min: 30 Pitocin Administration Comment: pitocin increased to 30 mu min at [facility] of placenta Placenta Delivery Placenta Delivery: Spontaneous Delivery Summary Summary Estimated blood loss (mL): 300 Attending at delivery: Odilia Martin DO Condition of Delivery Examined: Cervix Examined, Uterus Explored Post Hemorrhage: No Condition of Mother stable Condition of Infant (s) stable ODILIA MARTIN DO Apr 22, 2018 8:03 pm
--- NOTE | 2018-04-22 20:05 | Discharge Inst-Women's Service ---
Discharge Inst-Women's Serv Depart Medication/Instructions New, Converted or Re-Newed RX: RX on Chart Consults/Follow Up Additional Follow Up: Yes Orders/Referrals Dr. Martin in 6 weeks Activity Activity: Activity as Tolerated Driving Instructions: No Driving for 1 Week NO SMOKING: NO SMOKING Nothing Inside Vagina: No Douching, No Eighty Four, No Tampons Diet Discharge Diet: No Restrictions Symptoms to Report to : Bleeding Excessive, Pain Increased, Fever Over 101 Degrees F, Vaginal Bleeding Increase, Questions/Concerns For Any Problems or Questions: Contact Your Physician ODILIA MARTIN DO Apr 22, 2018 8:05 pm
[2018-04-22] MEDS ORDERED: ACHD5005 PO (20:06)
[2018-04-22] MEDS ORDERED: DOCU100C37 PO (20:06)
[2018-04-22] MEDS ORDERED: Benzocaine/Menthol TP (20:06)
[2018-04-22] MEDS ORDERED: IBUP-1773 PO (20:06)
[2018-04-22] MEDS ORDERED: IBUPROFEN 600 MG (MOTRIN) TAB PO ONE (20:49)
[2018-04-22] MEDS ORDERED: IBUPROFEN SUSP 100MG/5ML (MOTRIN) UDC ONE (21:15)
[2018-04-22] MEDS: DOCUSATE SODIUM 100 MG (COLACE) CAP PO SCH (21:25)
[2018-04-22] MEDS: IBUPROFEN SUSP 100MG/5ML (MOTRIN) UDC PO SCH (21:25)
[2018-04-22] MEDS: WITCH HAZEL(TUCKS) 40 EA JAR TOP PRN (21:46)
[2018-04-22] MEDS ORDERED: CATHETER FLUSH 10 ML SYR IV SCH (22:00)
[2018-04-23] MEDS ORDERED: IBUPROFEN 600 MG (MOTRIN) TAB PO SCH
[2018-04-23] MEDS: IBUPROFEN SUSP 100MG/5ML (MOTRIN) UDC PO SCH ×4 (02:29→22:50)
[2018-04-23 04:30] VITALS: BP 90/60
[2018-04-23 06:19] LABS: BASOPHILS % (AUTO) 0 % (0-10); EOSINOPHILS # (AUTO) 0.1 10^3/uL (0.0-0.3); EOSINOPHILS % (AUTO) 1 % (0-10); HEMATOCRIT 24 % (35-52); LYMPHOCYTES % (AUTO) 19 % (12-44); MEAN CORPUSCULAR HEMOGLOBIN 19 PG (25-34); MEAN CORPUSCULAR HGB CONC 29 G/DL (32-36); MEAN CORPUSCULAR VOLUME 65 FL (80-99); MEAN PLATELET VOLUME 10.4 FL (7.4-10.4); MONOCYTES # (AUTO) 0.6 X 10^3 (0.0-1.0); MONOCYTES % (AUTO) 6 % (0-12); NEUTROPHILS # (AUTO) 7.8 X 10^3 (1.8-7.8); NEUTROPHILS % (AUTO) 75 % (42-75); PLATELET COUNT 239 10^3/uL (130-400); RED BLOOD COUNT 3.71 10^6/uL (4.35-5.85); RED CELL DISTRIBUTION WIDTH 19.4 % (10.0-14.5); WHITE BLOOD COUNT 10.4 10^3/uL (4.3-11.0)
[2018-04-23 06:28] LABS: HEMOGLOBIN 6.9 G/DL (11.5-16.0)
--- NOTE | 2018-04-23 07:25 | Postpartum Progress Note ---
Note Note Day # 1 Subjective: Patient is without complaints. Ambulating, voiding. Tolerating a regular diet without nausea or vomiting. Normal lochia. Pain is well controlled with oral pain medications. Objective: Vital Sign - Last 24 Hours 04/22/18 04/22/18 04/22/18 04/22/18 08:55 09:45 11:30 12:00 Temp 98.0 Pulse 76 76 77 75 Resp 18 18 18 18 B/P (MAP) 112/75 (87) 107/62 (77) 119/68 (85) 109/67 (81) O2 Delivery Room Air Room Air Room Air Room Air 04/22/18 04/22/18 04/22/18 04/22/18 12:30 12:50 13:00 13:06 Temp 98.2 Pulse 82 76 81 81 Resp 18 18 18 18 B/P (MAP) 110/68 (82) 127/65 (85) 110/80 (90) 117/66 (83) Pulse Ox 85 100 100 O2 Delivery Room Air Room Air Room Air Room Air 04/22/18 04/22/18 04/22/18 04/22/18 13:10 13:15 13:20 13:25 Pulse 78 80 89 76 Resp 18 18 18 18 B/P (MAP) 112/60 (77) 119/68 (85) 118/78 (91) 112/71 (85) Pulse Ox 100 100 100 100 O2 Delivery Room Air Room Air Room Air Room Air 04/22/18 04/22/18 04/22/18 04/22/18 13:30 13:45 14:00 14:15 Pulse 71 64 67 51 Resp 18 18 18 18 B/P (MAP) 111/60 (77) 111/55 (73) 103/62 (76) 94/51 (65) Pulse Ox 98 99 99 100 O2 Delivery Room Air Room Air Room Air Room Air 04/22/18 04/22/18 04/22/18 04/22/18 14:30 14:45 15:00 15:15 Temp 96.5 Pulse 59 69 60 80 Resp 18 18 18 18 B/P (MAP) 102/60 (74) 102/71 (81) 106/74 (85) 114/53 (73) Pulse Ox 98 100 100 95 O2 Delivery Room Air Room Air Room Air Room Air 04/22/18 04/22/18 04/22/18 04/22/18 15:30 15:45 16:00 16:15 Pulse 66 64 64 60 Resp 18 18 18 18 B/P (MAP) 109/68 (82) 99/58 (72) 102/68 (79) 102/67 (79) Pulse Ox 100 100 100 100 O2 Delivery Room Air Room Air Room Air Room Air 04/22/18 04/22/18 04/22/18 04/22/18 16:30 16:45 17:00 17:15 Pulse 54 59 70 70 Resp 18 18 18 18 B/P (MAP) 100/70 (80) 99/67 (78) 113/70 (84) 114/73 (87) Pulse Ox 100 100 100 100 O2 Delivery Room Air Room Air Room Air Room Air 04/22/18 04/22/18 04/22/18 04/22/18 17:30 17:45 18:00 18:15 Pulse 62 61 78 77 Resp 18 18 18 18 B/P (MAP) 106/57 (73) 113/68 (83) 108/60 (76) 116/79 (91) Pulse Ox 100 100 100 99 O2 Delivery Room Air Room Air Room Air Room Air 04/22/18 04/22/18 04/22/18 04/22/18 18:30 18:45 19:00 19:15 Temp 97.9 Pulse 79 69 90 90 Resp 18 18 18 18 B/P (MAP) 105/57 (73) 109/57 (74) 162/70 (100) 124/58 (80) Pulse Ox 98 98 100 93 O2 Delivery Room Air Room Air Room Air Room Air 04/22/18 04/22/18 04/22/1818 19:18 19:21 19:24 19:25 Pulse 90 52 65 52 Resp 18 18 18 18 B/P (MAP) 110/65 (80) 109/63 (78) 124/80 (95) 119/59 (79) Pulse Ox 94 100 100 O2 Delivery Room Air Room Air Room Air Room Air 04/22/18 04/22/18 04/22/18 04/22/18 19:27 19:35 19:45 19:54 Temp 97.9 Pulse 69 90 111 76 Resp 18 18 18 18 B/P (MAP) 125/59 (81) 123/78 (93) 187/121 (143) 104/57 (73) Pulse Ox 87 100 O2 Delivery Room Air Room Air Room Air Room Air 04/22/18 04/22/18 04/22/18 04/22/18 19:58 20:07 20:32 20:55 Pulse 79 74 69 65 Resp 18 18 18 18 B/P (MAP) 136/57 (83) 114/58 (76) 120/71 (87) 121/80 (94) O2 Delivery Room Air Room Air Room Air Room Air 04/22/18 04/22/18 04/22/18 04/22/18 21:02 21:17 21:52 22:22 Pulse 78 58 67 45 Resp 18 18 18 18 B/P (MAP) 119/77 (91) 117/64 (81) 119/64 (82) 100/57 (71) O2 Delivery Room Air Room Air Room Air Room Air 04/22/18 04/23/18 23:45 04:30 Temp 98.1 97.9 Pulse 55 51 Resp 18 18 B/P (MAP) 101/58 (72) 90/60 (70) Pulse Ox 99 98 O2 Delivery Room Air Room Air Intake and Output 04/22/18 04/22/18 04/23/18 15:00 23:00 07:00 Intake Total 1050 ml Balance 1050 ml Physical Exam: General - Alert and oriented, no apparent distress Abdomen - Soft, appropriately tender to palpation, non-distended, fundus firm at umbilicus Extremities - no edema, negative Jung's bilaterally Assessment: PPD 1 NVD Acute blood loss anemia superimposed on anemia of Plan: Routine care. Encourage breast feeding. Encourage ambulation. Ferrous sulfate supplementation. Plan for discharge tomorrow Vitals - Labs Vital Signs - I&O Vital Signs Date Time Temp Pulse Resp B/P (MAP) Pulse Ox O2 Delivery O2 Flow Rate FiO2 04/23/18 04:30 97.9 51 18 90/60 (70) 98 Room Air 04/22/18 23:45 98.1 55 18 101/58 (72) 99 Room Air 04/22/18 22:22 45 18 100/57 (71) Room Air 04/22/18 21:52 67 18 119/64 (82) Room Air 04/22/18 21:17 58 18 117/64 (81) Room Air 04/22/18 21:02 78 18 119/77 (91) Room Air 04/22/18 20:55 65 18 121/80 (94) Room Air 04/22/18 20:32 69 18 120/71 (87) Room Air 04/22/18 20:07 74 18 114/58 (76) Room Air 04/22/18 19:58 79 18 136/57 (83) Room Air 04/22/18 19:54 76 18 104/57 (73) Room Air 04/22/18 19:45 111 18 187/121 (143) Room Air 04/22/18 19:35 97.9 90 18 123/78 (93) 100 Room Air 04/22/18 19:27 69 18 125/59 (81) 87 Room Air 04/22/18 19:25 52 18 119/59 (79) 100 Room Air 04/22/18 19:24 65 18 124/80 (95) 100 Room Air 04/22/18 19:21 52 18 109/63 (78) 94 Room Air 04/22/18 19:18 90 18 110/65 (80) Room Air 04/22/18 19:15 90 18 124/58 (80) 93 Room Air 04/22/18 19:00 90 18 162/70 (100) 100 Room Air 04/22/18 18:45 97.9 69 18 109/57 (74) 98 Room Air 04/22/18 18:30 79 18 105/57 (73) 98 Room Air 04/22/18 18:15 77 18 116/79 (91) 99 Room Air 04/22/18 18:00 78 18 108/60 (76) 100 Room Air 04/22/18 17:45 61 18 113/68 (83) 100 Room Air 04/22/18 17:30 62 18 106/57 (73) 100 Room Air 04/22/18 17:15 70 18 114/73 (87) 100 Room Air 04/22/18 17:00 70 18 113/70 (84) 100 Room Air 18 16:45 59 18 99/67 (78) 100 Room Air 04/22/18 16:30 54 18 100/70 (80) 100 Room Air 04/22/18 16:15 60 18 102/67 (79) 100 Room Air 04/22/18 16:00 64 18 102/68 (79) 100 Room Air 04/22/18 15:45 64 18 99/58 (72) 100 Room Air 04/22/18 15:30 66 18 109/68 (82) 100 Room Air 04/22/18 15:15 96.5 80 18 114/53 (73) 95 Room Air 04/22/18 15:00 60 18 106/74 (85) 100 Room Air 04/22/18 14:45 69 18 102/71 (81) 100 Room Air 04/22/18 14:30 59 18 102/60 (74) 98 Room Air 04/22/18 14:15 51 18 94/51 (65) 100 Room Air 04/22/18 14:00 67 18 103/62 (76) 99 Room Air 04/22/18 13:45 64 18 111/55 (73) 99 Room Air 04/22/18 13:30 71 18 111/60 (77) 98 Room Air 04/22/18 13:25 76 18 112/71 (85) 100 Room Air 04/22/18 13:20 89 18 118/78 (91) 100 Room Air 04/22/18 13:15 80 18 119/68 (85) 100 Room Air 04/22/18 13:10 78 18 112/60 (77) 100 Room Air 04/22/18 13:06 81 18 117/66 (83) 100 Room Air 04/22/18 13:00 81 18 110/80 (90) 100 Room Air 04/22/18 12:50 98.2 76 18 127/65 (85) 85 Room Air 04/22/18 12:30 82 18 110/68 (82) Room Air 04/22/18 12:00 75 18 109/67 (81) Room Air 04/22/18 11:30 77 18 119/68 (85) Room Air 04/22/18 09:45 98.0 76 18 107/62 (77) Room Air 04/22/18 08:55 76 18 112/75 (87) Room Air I & O 04/23/18 07:00 Intake Total 1050 ml Balance 1050 ml Labs Laboratory Tests 04/22/18 09:00: Urine Color AMBERH, Urine Clarity SLIGHTLY CLOUDY, Urine pH 7, Urine Specific [place] 1.015L, Urine Protein 1+H, Urine Glucose (UA) NEGATIVE, Urine Ketones NEGATIVE, Urine Nitrite NEGATIVE, Urine Bilirubin NEGATIVE, Urine Urobilinogen 4H, Urine Leukocyte Esterase 2+H, Urine RBC (Auto) 1+H, Urine RBC NONE, Urine WBC 25-50H, Urine Squamous Epithelial Cells 10-25H, Urine Renal Epithelial Cells NONE, Urine Crystals NONE, Urine Bacteria MODERATEH, Urine Casts NONE, Urine Mucus SMALLH, Urine Culture Indicated YES 04/22/18 11:27: White Blood Count 10.1, Red Blood Count 4.12L, Hemoglobin 8.2L, Hematocrit 26L, Mean Corpuscular Volume 64L, Mean Corpuscular Hemoglobin 20L, Mean Corpuscular Hemoglobin Concent 31L, Red Cell Distribution Width 19.0H, Platelet Count 286, Mean Platelet Volume 10.4, Neutrophils (%) (Auto) 78H, Lymphocytes (%) (Auto) 17 , Monocytes (%) (Auto) 5, Eosinophils (%) (Auto) 1, Basophils (%) (Auto) 0, Neutrophils # (Auto) 7.8, Lymphocytes # (Auto) 1.7, Monocytes # (Auto) 0.5, Eosinophils # (Auto) 0.1, Basophils # (Auto) 0.0 04/23/18 06:05: White Blood Count 10.4, Red Blood Count 3.71L, Hemoglobin 6.9*L, Hematocrit 24L , Mean Corpuscular Volume 65L, Mean Corpuscular Hemoglobin 19L, Mean Corpuscular Hemoglobin Concent 29L, Red Cell Distribution Width 19.4H, Platelet Count 239, Mean Platelet Volume 10.4, Neutrophils (%) (Auto) 75, Lymphocytes (% ) (Auto) 19, Monocytes (%) (Auto) 6, Eosinophils (%) (Auto) 1, Basophils (%) ( Auto) 0, Neutrophils # (Auto) 7.8, Lymphocytes # (Auto) 2.0, Monocytes # (Auto) 0.6, Eosinophils # (Auto) 0.1, Basophils # (Auto) 0.0 ODILIA MARTIN DO Apr 23, 2018 7:25 am
[2018-04-23 08:10] VITALS: BP 103/72
[2018-04-23] MEDS: DOCUSATE SODIUM 100 MG (COLACE) CAP PO SCH ×2 (09:03→22:50)
[2018-04-23] MEDS: PRENATAL VITAMIN 1 EA TAB PO SCH ×2 (09:03→09:06)
[2018-04-23] MEDS: HYDROcodone/APAP 5 MG/325 MG (LORTAB) TAB PO PRN ×3 (09:03→19:51)
[2018-04-23] MEDS: FERROUS SULF 325 MG (IRON) TAB PO SCH (09:03)
[2018-04-23 17:15] VITALS: BP 107/72
--- NOTE | 2018-04-23 18:42 | Anesthesia-Regional Post-Op ---
Regional Patient Condition Mental Status: Alert, Oriented x3 Circulation: Same as Pre-Op Headache: Absent Sensation: Full Recovery Motor Block: Absent Post Op Complications Complications None Follow Up Care/Instructions Patient Instructions None needed. Anesthesia/Patient Condition Patient was seen this morning and she was doing well, no complaints, stable vital signs, no apparent adverse anesthesia problems. PADMINI STERLING DO Apr 23, 2018 18:42
[2018-04-23 20:20] VITALS: BP 115/73
[2018-04-24] MEDS: HYDROcodone/APAP 5 MG/325 MG (LORTAB) TAB PO PRN ×2 (00:55→08:55)
[2018-04-24 02:51] VITALS: BP 99/68
[2018-04-24 07:15] VITALS: BP 104/65
[2018-04-24 08:00] VITALS: BP 104/65
[2018-04-24] MEDS: DOCUSATE SODIUM 100 MG (COLACE) CAP PO SCH (08:55)
[2018-04-24] MEDS: FERROUS SULF 325 MG (IRON) TAB PO SCH (08:55)
[2018-04-24] MEDS: PRENATAL VITAMIN 1 EA TAB PO SCH (08:56)
--- NOTE | 2018-04-24 09:38 | Postpartum Progress Note ---
Note Note Day # 2 Subjective: Patient is without complaints. Ambulating, voiding. Tolerating a regular diet without nausea or vomiting. Normal lochia. Pain is well controlled with oral pain medications. [] feeding. [] Objective: Physical Exam: General - Alert and oriented, no apparent distress Abdomen - Soft, appropriately tender to palpation, non-distended, fundus firm at umbilicus Extremities - no edema, negative Jung's bilaterally Assessment: PPD 2 NVD Acute blood loss anemia Plan: Routine care. Encourage breast feeding. Encourage ambulation. Ferrous sulfate supplementation. Plan for discharge today Vitals - Labs Vital Signs - I&O Vital Signs Date Time Temp Pulse Resp B/P (MAP) Pulse Ox O2 Delivery O2 Flow Rate FiO2 04/24/18 07:15 98.2 76 18 104/65 (78) 99 Room Air 04/24/18 02:51 97.6 55 18 99/68 (78) 99 Room Air 04/23/18 20:20 98.8 61 18 115/73 (87) 98 Room Air 04/23/18 17:15 98.8 85 18 107/72 (84) 98 Room Air ODILIA MARTIN DO Apr 24, 2018 9:38 am
[2018-04-24] MEDS: IBUPROFEN SUSP 100MG/5ML (MOTRIN) UDC PO SCH (11:47)
[2018-04-24] MEDS: WITCH HAZEL(TUCKS) 40 EA JAR TOP PRN (12:03)
[2018-04-24 13:15] VITALS: BP 104/65
== END 2018-04-24 13:15 | disposition home or self-care (01) | DRG 806 ==
LOC: WSo 08:53 → LDRP 08:53 → WSo 10:14 → LDRP 10:15
PROVIDERS: ADMIT Obstetrics & Gynecology; ATTEND Obstetrics & Gynecology
PROC: 10E0XZZ Delivery of Products of Conception, External Approach (ICD-10-PCS; principal; 2018-04-22)
DX: O99.03 Anemia complicating the puerperium (principal); D64.9 Anemia, unspecified; D62 Acute posthemorrhagic anemia; O62.0 Primary inadequate contractions; Z3A.37 37 weeks gestation of pregnancy; Z37.0 Single live birth
CPT/HCPCS: 36415; 81000; 85025; 86850; 86900; 86901; 87077; 87088; 99212

== ENCOUNTER → 2018-04-29 | Outpatient (CLI) | payer BC ==
[~2018-04-29] MED LIST changes: +ACHD5005 PO; +ALBU2.5V4 IH; +Benzocaine/Menthol TP; +DOCU100C37 PO; +FERR-84 PO; +IBUP-1773 PO
--- NOTE | 2018-04-29 11:56 | Diagnostic Imaging Report ---
PROCEDURE: US right lower extremity venous. TECHNIQUE: Multiple real-time grayscale images were obtained over the right lower extremity in various projections. Additional duplex Doppler and color Doppler images were also obtained. INDICATION: Pain and swelling. FINDINGS: The right common femoral, superficial femoral, popliteal veins and tibial veins demonstrate normal response to compression, augmentation, and Valsalva. There are no right lower extremity fluid collections or masses. IMPRESSION: No evidence of deep vein thrombosis in the right lower extremity. Dictated by: Dictated on workstation # [id number]
== END ==
LOC: RAD 10:32
PROVIDERS: ATTEND Obstetrics & Gynecology
DX: M79.89 Other specified soft tissue disorders (principal); Z39.2 Encounter for routine postpartum follow-up

== ENCOUNTER → 2020-04-25 | Outpatient (CLI) | payer BC | LOC: CARD 12:17 | PROVIDERS: ATTEND Internal Medicine Cardiovascular Disease | DX: I49.1 Atrial premature depolarization (principal); I49.8 Other specified cardiac arrhythmias; R00.2 Palpitations; R07.89 Other chest pain | CPT/HCPCS: 93306; 93351 ==

== ENCOUNTER → 2020-06-26 | Outpatient (CLI) | payer BC ==
[~2020-06-26] MED LIST changes: +RT-ALBUTEROL SULF 2.5 MG/3 ML PRE-MIX VIAL INH ONE
== END ==
LOC: RT 08:00
PROVIDERS: ATTEND Internal Medicine Critical Care Medicine
DX: J45.909 Unspecified asthma, uncomplicated (principal)
CPT/HCPCS: 94060; 94726; 94729

== ENCOUNTER → 2020-08-15 | Outpatient (CLI) | payer BC ==
[~2020-08-15] MED LIST changes: +CATHETER FLUSH 10 ML SYR IV PRN; +HOLD METFORMIN - RECEIVED CONTRAST 20 ML VIAL IV SCH; +IOHEXOL 350 MG/ML 100 ML (OMNIPAQUE 350) VIAL IV ONE; -RT-ALBUTEROL SULF 2.5 MG/3 ML PRE-MIX VIAL INH ONE
--- NOTE | 2020-08-15 08:47 | Diagnostic Imaging Report ---
PROCEDURE: CT chest with contrast only. TECHNIQUE: Multiple contiguous axial images were obtained through the chest after administration of intravenous contrast. Auto Exposure Controls were utilized during the CT exam to meet ALARA standards for radiation dose reduction. INDICATION: Asthma, difficulty breathing. COMPARISON: None available. FINDINGS: No significant adenopathy within the chest. No aneurysmal dilatation of thoracic aorta. No significant pericardial effusion. No pleural effusion. Severe pectus excavatum deformity is identified with a Guillermina index of 4.8. This is seen indenting and significantly displacing the heart. No pneumothorax. The trachea is patent. The lungs are clear. The visualized upper abdomen is unremarkable. No acute osseous abnormality. IMPRESSION: Severe pectus excavatum deformity with an abnormal Guillermina index of 4.8. Dictated by: Dictated on workstation # [id number]
== END ==
LOC: RAD 07:45
PROVIDERS: ATTEND Internal Medicine Critical Care Medicine
DX: J45.909 Unspecified asthma, uncomplicated (principal); M95.4 Acquired deformity of chest and rib
CPT/HCPCS: 71260

== ENCOUNTER 2021-11-28 21:57 | Emergency (ER) | payer SELFPAY ==
[~2021-11-28] VITALS: Ht 167.7 cm; Wt 70.3 kg
[~2021-11-28 21:57] MED LIST changes: -CATHETER FLUSH 10 ML SYR IV PRN; -HOLD METFORMIN - RECEIVED CONTRAST 20 ML VIAL IV SCH; -IOHEXOL 350 MG/ML 100 ML (OMNIPAQUE 350) VIAL IV ONE
[2021-11-28 22:16] VITALS: BP 125/83
--- NOTE | 2021-11-28 22:29 | ED Upper Extremity ---
General Stated Complaint: L ARM PAIN Source: patient Exam Limitations: no limitations History of Present Illness Date Seen by Provider: November 28, 2021 Time Seen by Provider: 22:17 Initial Comments This is a 31-year-old female who presented to the ER via POV with complaints of shortness of breath and left arm heaviness that started around 2129. She does have a history of asthma however tonight shortness of breath feels different from prior episodes of shortness of breath. She is also never experienced any left arm heaviness in the past. She does not take any daily medications nor does she take anything mate-eqm-osuqule. She does not have any fever, chills, cough, chest pain, nausea, vomiting, abdominal pain. Last menstrual period was approximately 20 days ago. She does not take any control. Allergies and Home Medications Allergies Coded Allergies: fluconazole (Unverified Adverse Reaction, Unknown, 10/19/13) Patient Home Medication List Home Medication List Reviewed: Yes Albuterol Sulfate (Albuterol Sulfate) 2.5 Mg/3 Ml Vial.neb, 2.5 MG IH, (Reported) Entered as Reported by: MERT PICKARD on 04/22/18 183 Docusate Sodium (Docusate Sodium) 100 Mg Capsule, 100 MG PO BID PRN for CONSTIPATION-1ST LINE Prescribed by: ODILIA MARTIN on 04/22/182005 Ferrous Sulfate (Iron) 325 Mg Tablet, 325 MG PO TID, (Reported) Entered as Reported by: MERT PICKARD on 04/22/18 1836 Hydrocodone Bit/Acetaminophen (Lortab 5 Mg Tablet) 1 Tab Tab, 1-2 TAB PO Q4H PRN for PAIN-MODERATE Prescribed by: ODILIA MARTIN on 04/22/182005 Ibuprofen (Ibuprofen) 600 Mg Tablet, 600 MG PO Q6H Prescribed by: ODILIA MARTIN on 04/22/182005 Pediatric Multivit Comb No.42 (Flintstones) 1 Each Tab.chew, 2 EACH PO DAILY, ( Reported) Entered as Reported by: ZAYDA SRINIVASAN on 10/19/13 1247 [Benzocaine/Menthol] 56 ML AEROSOL, 56 ML TP UD PRN for PAIN- SEE INSTRUCTIONS Prescribed by: ODILIA MARTIN on 04/22/182005 Review of Systems Constitutional: no symptoms reported EENTM: no symptoms reported Respiratory: No cough, No dyspnea on exertion; short of breath Cardiovascular: No chest pain Gastrointestinal: no symptoms reported Genitourinary: no symptoms reported Musculoskeletal: no symptoms reported Skin: no symptoms reported Psychiatric/Neurological: No Symptoms Reported Past Akxrown-Vxjcjz-Sweupg Hx Immunizations Up To Date Tetanus Booster (TDap): More than 5yrs Seasonal Allergies Seasonal Allergies: No Past Medical History Surgeries: No Respiratory: Yes Asthma Cardiac: No Neurological: No Reproductive Disorders: No Female Reproductive Disorders: Denies Sexually Transmitted Disease: No HIV/AIDS: No Genitourinary: No Gastrointestinal: No Musculoskeletal: No Endocrine: No HEENT: Yes (wears glasses) Cancer: No Psychosocial: No Integumentary: No Blood Disorders: No Adverse Reaction/Blood Tranf: No Family Medical History Family history: Diabetes mellitus GRANDPA Family history: Hypertension 03 MOTHER Heart disease GRANDPA Myocardial infarction GRANDPA (Maternal Grandpa) Physical Exam Vital Signs Vital Signs - First Documented 11/28/21 22:16 Temp 37.0 Pulse 81 Resp 21 B/P (MAP) 125/83 (97) Pulse Ox 99 O2 Delivery Room Air Capillary Refill : Height, Weight, BMI Height: 5'6.00" Weight: 145lbs. 0.6oz. 65.573989we; 23.4 BMI Method:Stated General Appearance: WD/WN, no apparent distress HEENT: PERRL/EOMI, normal ENT inspection, pharynx normal Neck: full range of motion, supple, normal inspection Cardiovascular: normal peripheral pulses, regular rate, rhythm, no murmur Respiratory: lungs clear, normal breath sounds, no respiratory distress, no accessory muscle use Gastrointestinal: normal bowel sounds, non tender, soft Back: normal inspection, no vertebral tenderness Shoulder: non-tender, normal ROM Elbow/Forearm: normal inspection, non-tender Wrist: Yes normal inspection, Yes non-tender, Yes no evidence of injury Hand: normal inspection, non-tender, no evidence of injury Progress/Results/Core Measures Results/Orders Lab Results Laboratory Tests Test 11/28/21 23:15 Range/Units White Blood Count 8.4 4.3-11.0 10^3/uL Red Blood Count 5.09 3.80-5.11 10^6/uL Hemoglobin 11.8 11.5-16.0 g/dL Hematocrit 38 35-52 % Mean Corpuscular Volume 74 L 80-99 fL Mean Corpuscular Hemoglobin 23 L 25-34 pg Mean Corpuscular Hemoglobin Concent 32 32-36 g/dL Red Cell Distribution Width 14.9 H 10.0-14.5 % Platelet Count 249 130-400 10^3/uL Mean Platelet Volume 10.8 9.0-12.2 fL Immature Granulocyte % (Auto) 0 % Neutrophils (%) (Auto) 59 42-75 % Lymphocytes (%) (Auto) 30 12-44 % Monocytes (%) (Auto) 6 0-12 % Eosinophils (%) (Auto) 5 0-10 % Basophils (%) (Auto) 0 0-10 % Neutrophils # (Auto) 5.0 1.8-7.8 10^3/uL Lymphocytes # (Auto) 2.5 1.0-4.0 10^3/uL Monocytes # (Auto) 0.5 0.0-1.0 10^3/uL Eosinophils # (Auto) 0.4 H 0.0-0.3 10^3/uL Basophils # (Auto) 0.0 0.0-0.1 10^3/uL Immature Granulocyte # (Auto) 0.0 0.0-0.1 10^3/uL D-Dimer 0.23 0.00-0.49 UG/ML Sodium Level 139 135-145 MMOL/L Potassium Level 3.7 3.6-5.0 MMOL/L Chloride Level 105 98-107 MMOL/L Carbon Dioxide Level 21 21-32 MMOL/L Anion Gap 13 5-14 MMOL/L Blood Urea Nitrogen 12 7-18 MG/DL Creatinine 0.75 0.60-1.30 MG/DL Estimat Glomerular Filtration Rate 110 BUN/Creatinine Ratio 16 Glucose Level 94 70-105 MG/DL Calcium Level 9.3 8.5-10.1 MG/DL Corrected Calcium 9.0 8.5-10.1 MG/DL Total Bilirubin 0.4 0.1-1.0 MG/DL Aspartate Amino Transf (AST/SGOT) 20 5-34 U/L Alanine Aminotransferase (ALT/SGPT) 16 0-55 U/L Alkaline Phosphatase 60 40-136 U/L Total Protein 7.4 6.4-8.2 GM/DL Albumin 4.4 3.2-4.5 GM/DL Serum Test, Qualitative NEGATIVE NEGATIVE My Orders Orders - HECTOR CHEEMA APRN Ekg Tracing (11/28/21 22:29) Cbc With Automated Diff (11/28/21 22:50) Comprehensive Metabolic Panel (11/28/21 22:50) Chest 1 View, Ap/Pa Only (11/28/21 22:50) Fibrin Degradation Products (11/28/21 22:50) Ketorolac Injection (Toradol Injection) (11/28/21 23:00) Ed Iv/Invasive Line Start (11/28/21 23:23) Hcg,Qualitative Serum (11/28/21 23:24) Troponin I [place] (11/28/21 23:49) Medications Given in ED Current Medications Medications Dose Ordered Sig/Bushra Route Start Time Stop Time Status Last Admin Dose Admin Ketorolac Tromethamine 30 mg ONCE ONCE IVP 11/28/21 23:00 11/28/21 23:01 DC 11/28/21 23:48 30 MG Vital Signs/I&O 11/28/21 22:16 Temp 37.0 Pulse 81 Resp 21 B/P (MAP) 125/83 (97) Pulse Ox 99 O2 Delivery Room Air Initial ECG Impression Date: November 28, 2021 Initial ECG Impression Time: 22:35 Initial ECG Rate: 72 Initial ECG Rhythm: Normal Sinus Initial ECG Intervals S1, Q3, T3 pattern. Departure Impression Primary Impression: Arm heaviness Additional Impression: Shortness of breath Disposition: 01 HOME, SELF-CARE Condition: Stable Departure-Patient Inst. Decision time for Depature: 00:03 Referrals: NO,LOCAL PHYSICIAN (PCP/Family) Primary Care Physician Patient Instructions: Thoracic Outlet Syndrome Exercises Add. Discharge Instructions: Plan: 1. See information handout regarding exercises to see if this will improve symptoms. 2. Follow up with your doctor, please call tomorrow to schedule follow up. You may need MRI imaging of your arm for further evaluation and persistent symptoms. 3. Return for any new, concerning, or worsening symptoms. Scripts Amoxicillin/Potassium Clav (Augmentin 500-125 Tablet) 500 Mg-125 Mg Tablet 1 EACH PO BID for 7 Days, #14 TAB 0 Refills Prov: HECTOR CHEEMA [employer]AL [employer]PARER 11/29/21 HECTOR CHEEMA SE[employer]ONAL T[employer] PREPARER November 28, 2021 22:29
[2021-11-28] MEDS ORDERED: KETOROLAC 30 MG/ML VIAL IVP ONE (23:00)
[2021-11-28 23:23] LABS: BASOPHILS % (AUTO) 0 % (0-10); EOSINOPHILS # (AUTO) 0.4 10^3/uL (0.0-0.3); EOSINOPHILS % (AUTO) 5 % (0-10); HEMATOCRIT 38 % (35-52); HEMOGLOBIN 11.8 g/dL (11.5-16.0); LYMPHOCYTES # (AUTO) 2.5 10^3/uL (1.0-4.0); LYMPHOCYTES % (AUTO) 30 % (12-44); MEAN CORPUSCULAR HEMOGLOBIN 23 pg (25-34); MEAN CORPUSCULAR HGB CONC 32 g/dL (32-36); MEAN CORPUSCULAR VOLUME 74 fL (80-99); MEAN PLATELET VOLUME 10.8 fL (9.0-12.2); MONOCYTES # (AUTO) 0.5 10^3/uL (0.0-1.0); MONOCYTES % (AUTO) 6 % (0-12); NEUTROPHILS % (AUTO) 59 % (42-75); PLATELET COUNT 249 10^3/uL (130-400); WHITE BLOOD COUNT 8.4 10^3/uL (4.3-11.0)
[2021-11-28 23:34] LABS: ALBUMIN 4.4 GM/DL (3.2-4.5); POTASSIUM 3.7 MMOL/L (3.6-5.0)
[2021-11-28 23:35] LABS: CALCIUM 9.3 MG/DL (8.5-10.1)
[2021-11-28 23:37] LABS: TOTAL PROTEIN 7.4 GM/DL (6.4-8.2)
[2021-11-28 23:38] LABS: BILIRUBIN,TOTAL 0.4 MG/DL (0.1-1.0)
[2021-11-28 23:40] LABS: CREATININE SERUM 0.75 MG/DL (0.60-1.30)
[2021-11-29] MEDS ORDERED: AMOX-355 PO (00:06)
[2021-11-29] MEDS ORDERED: AUGMENTIN 500 MG TAB (AMOXICILLIN/CLAVULANATE) PO ONE (00:15)
--- NOTE | 2021-11-29 06:48 | Diagnostic Imaging Report ---
INDICATION: Shortness of breath Frontal chest obtained at 11:39 p.m. There is no prior chest x-ray for comparison. Heart is normal in size. There is some infiltrate in the right medial base. There is no pneumothorax or pleural fluid. IMPRESSION: Infiltrate in right medial base. No other abnormal findings. Dictated by: Dictated on workstation # [id number]
== END 2021-11-29 00:55 | disposition home or self-care (01) ==
LOC: EDUNIT# 21:57 → ER 22:00
DX: M79.602 Pain in left arm (principal); R06.02 Shortness of breath
CPT/HCPCS: 36415; 71045; 80053; 84484; 84703; 85025; 85379; 93005